=== PATIENT | female | born 1970 | race Caucasian/White ===

== ENCOUNTER 2023-07-26 07:13 | Day surgery (SDC) | payer OTHER ==
[~2023-07-26] VITALS: Ht 170.2 cm; Wt 65.8 kg
[2023-07-26] MEDS ORDERED: SIMETHICONE 40 MG/0.6 ML ML ONE (07:53)
[2023-07-26] MEDS ORDERED: MEPERIDINE 100 MG INJ. 100 MG/ML VIAL ONE (07:55)
[2023-07-26] MEDS ORDERED: MIDAZOLAM HCL 5 MG/5 ML VIAL ONE (07:55)
[2023-07-26 08:03] LABS: HCG,QUAL RESULT NEGATIVE (NEGATIVE)
[2023-07-26 12:24] VITALS: O2SAT 97
[2023-07-26 15:11] VITALS: BP_SYST 136; PULSE 59; RESP 20
== END 2023-07-26 10:40 | disposition home or self-care (01) ==
LOC: SDS 07:13 → SMU 07:14 → SDS 10:40
PROVIDERS: ATTEND Student in an Organized Health Care Education/Training Program
DX: Z12.11 Encounter for screening for malignant neoplasm of colon (principal); K57.30 Diverticulosis of large intestine without perforation or abscess without bleeding; K64.8 Other hemorrhoids; K64.4 Residual hemorrhoidal skin tags; J45.909 Unspecified asthma, uncomplicated; E03.9 Hypothyroidism, unspecified; Z98.891 History of uterine scar from previous surgery; Z98.890 Other specified postprocedural states; Z79.899 Other long term (current) drug therapy
CPT/HCPCS: 45378; 99152; 84703; G0378; J2250; J2175